=== PATIENT | male | born 1930 | race Caucasian/White ===

== ENCOUNTER → 2016-09-06 | Outpatient (CLI) | payer OTHER ==
[~2016-09-06] MED LIST: ACET-1311 PO; ASCO10003 PO; CALC500C70 PO; FLAX10007 PO; HYDR25TA4 PO; OXYB10TA13 PO; POTA-327 PO; VITA400C3 PO
[2016-09-06 12:40] LABS: BASO % 0.5 %; BASO ABS # 0.03 K/uL (0-0.2); COMPLETE YES; HEMATOCRIT 40.7 % (42-52); IG% 0.2 %; LYMPH % 26.6 %; LYMPH ABS # 1.69 K/uL (1.2-3.4); MEAN CELL VOLUME 100.5 fL (80-100); MEAN CORPUSCULAR HEMOGLOBIN 33.8 pg (25-34); MEAN CORPUSCULAR HGB CONC 33.7 g/dl (32-36); MONO % 9.9 %; NEUT % 59.8 %; PLATELET COUNT 209 K/uL (130-400); RED BLOOD COUNT 4.05 M/uL (4.7-6.1); WHITE BLOOD COUNT 6.36 K/uL (4.8-10.8)
[2016-09-06 13:12] LABS: ESTIMATED AVERAGE GLUCOSE 120 mg/dl; HA1C FLAG Normal (Normal)
[2016-09-06 13:14] LABS: ALT/SGPT 21 U/L (12-78); AST/SGOT 22 U/L (15-37); BLOOD UREA NITROGEN 26 mg/dl (7-18); BUN/CREATININE RATIO 26.3 (10-20); CALCIUM 9.4 mg/dl (8.5-10.1); CARBON DIOXIDE 26 mmol/L (21-32); CHLORIDE 105 mmol/L (98-107); CHOLESTEROL 237 mg/dl (0-200); GLUCOSE 110 mg/dl (70-99); POTASSIUM 4.2 mmol/L (3.5-5.1); SODIUM 141 mmol/L (136-145)
[2016-09-06 13:19] LABS: ALB/GLOB RATIO 1.1 (0.9-2); ALKALINE PHOSPHATASE 81 U/L (45-117); CHOLESTEROL/HDL RATIO 4.3; HDL CHOLESTEROL 55 mg/dl; LDL CHOLESTEROL CALCULATED 144 mg/dl; TRIGLYCERIDES 189 mg/dl (0-150); VERY LOW DENSITY LIPOPROT CALC 38 mg/dl
--- NOTE | 2016-09-10 13:15 | CODING QUERY MEDICAL NECESSITY ---
SUPPORTING DIAGNOSIS NEEDED Dr. Maloney, A supporting diagnosis is required for the test/procedure performed on this patient in order for us to be reimbursed by the patient's insurance. Please provide a supporting diagnosis for the following test/procedure listed below next to the test name along with your signature. *If there is no additional diagnosis for this patient that would support the following test/procedure please document that below next to the test/procedure. Test(s)/Procedure(s) that require a supporting diagnosis: * ([id number]) VITAMIN D ASSAY DIAGNOSIS: * [id number] PSA DIAGNOSIS: DATE OF SERVICE: 09/06/16 Provider Signature: Date: Thank you Christian Kemp [facility] Information Management Once completed, please kindly fax back to [phone] For questions please call [phone]
== END | disposition home or self-care (01) ==
LOC: C.LABPVFM 08:39
PROVIDERS: ATTEND Family Medicine
DX: I10 Essential (primary) hypertension (principal); R73.01 Impaired fasting glucose; D64.9 Anemia, unspecified; R39.9 Unspecified symptoms and signs involving the genitourinary system; E87.6 Hypokalemia; M47.812 Spondylosis without myelopathy or radiculopathy, cervical region; C61 Malignant neoplasm of prostate

== ENCOUNTER → 2017-03-21 | Outpatient (CLI) | payer OTHER ==
[2017-03-21 12:34] LABS: BASO % 0.2 %; BASO ABS # 0.01 K/uL (0-0.2); COMPLETE YES; EOS % 4.5 %; HEMATOCRIT 42.5 % (42-52); IG% 0.2 %; LYMPH % 23.2 %; LYMPH ABS # 1.35 K/uL (1.2-3.4); MEAN CELL VOLUME 101.9 fL (80-100); MEAN CORPUSCULAR HEMOGLOBIN 33.1 pg (25-34); MEAN CORPUSCULAR HGB CONC 32.5 g/dl (32-36); NEUT % 59.9 %; PLATELET COUNT 212 K/uL (130-400); RED BLOOD COUNT 4.17 M/uL (4.7-6.1); WHITE BLOOD COUNT 5.83 K/uL (4.8-10.8)
[2017-03-21 13:15] LABS: BLOOD UREA NITROGEN 22 mg/dl (7-18); GLUCOSE 105 mg/dl (70-99)
[2017-03-21 13:16] LABS: ALT/SGPT 19 U/L (12-78); CALCIUM 9.7 mg/dl (8.5-10.1); CARBON DIOXIDE 29 mmol/L (21-32); CHLORIDE 104 mmol/L (98-107); POTASSIUM 4.1 mmol/L (3.5-5.1); SODIUM 138 mmol/L (136-145)
[2017-03-21 13:19] LABS: ALB/GLOB RATIO 0.9 (0.9-2); ALKALINE PHOSPHATASE 81 U/L (45-117); AST/SGOT 21 U/L (15-37)
== END | disposition home or self-care (01) ==
LOC: C.LABPVFM 08:19
PROVIDERS: ATTEND Family Medicine
DX: C61 Malignant neoplasm of prostate (principal); I10 Essential (primary) hypertension; E78.5 Hyperlipidemia, unspecified; R06.09 Other forms of dyspnea; R73.01 Impaired fasting glucose; R09.81 Nasal congestion

== ENCOUNTER → 2017-03-29 | Outpatient (CLI) | payer OTHER | END | disposition home or self-care (01) | LOC: C.LABPVFM 15:35 | PROVIDERS: ATTEND Family Medicine | DX: R05 Cough (principal) ==

== ENCOUNTER → 2017-08-09 | Outpatient (CLI) | payer OTHER ==
[2017-08-09 17:37] LABS: BASO % 0.3 %; BASO ABS # 0.02 K/uL (0-0.2); EOS % 3.8 %; EOS ABS # 0.23 K/uL (0-0.5); HEMATOCRIT 38.8 % (42-52); IG# 0.02 K/uL (0.00-0.02); LYMPH % 20.6 %; LYMPH ABS # 1.24 K/uL (1.2-3.4); MEAN CELL VOLUME 101.6 fL (80-100); MEAN CORPUSCULAR HGB CONC 33.5 g/dl (32-36); MEAN PLATELET VOLUME 12.4 fL (7.4-10.4); MONO % 12.1 %; MONO ABS # 0.73 K/uL (0.11-0.59); NEUT % 62.9 %; NEUT ABS # 3.78 K/uL (1.4-6.5); PLATELET COUNT 214 K/uL (130-400); RED CELL DISTRIBUTION WIDTH CV 12.8 % (11.5-14.5); RED CELL DISTRIBUTION WIDTH SD 47.5 fL (36.4-46.3); WHITE BLOOD COUNT 6.02 K/uL (4.8-10.8)
[2017-08-09 17:46] LABS: ALBUMIN 3.4 gm/dl (3.4-5.0); ALT/SGPT 19 U/L (12-78); AST/SGOT 21 U/L (15-37); BLOOD UREA NITROGEN 25 mg/dl (7-18); CALCIUM 8.7 mg/dl (8.5-10.1); CARBON DIOXIDE 28 mmol/L (21-32); GLUCOSE 134 mg/dl (70-99); SODIUM 137 mmol/L (136-145)
[2017-08-09 17:57] LABS: ALKALINE PHOSPHATASE 94 U/L (45-117); TOTAL PROTEIN 7.3 gm/dl (6.4-8.2)
== END | disposition home or self-care (01) ==
LOC: C.LABPVFM 15:17
PROVIDERS: ATTEND Family Medicine
DX: R55 Syncope and collapse (principal)

== ENCOUNTER → 2017-08-11 | Outpatient (CLI) | payer OTHER ==
--- NOTE | 2017-08-11 13:28 | DIAGNOSTIC IMAGING REPORT ---
HEAD CT NONCONTRAST CT DOSE: 638.56 mGycm HISTORY: Syncope. TECHNIQUE: Multiaxial CT images of the head were performed without the use of intravenous contrast. Automated exposure control was utilized for this study. A dose lowering technique was utilized adhering to the principles of ALARA. Comparison: None. Findings: Mild mucosal thickening within the ethmoid air cells. The calvarium and skull base are intact. There is no mass, hematoma, midline shift, acute infarct. White matter hypodensity is nonspecific but suggestive of microvascular ischemic change. The ventricles and sulci are within normal limits for age. Impression: No acute intracranial abnormality. Electronically signed by: Freeman Jacinto M.D. 08/11/2017 1:26 PM Dictated Date/Time: 08/11/2017 12:53 PM
== END | disposition home or self-care (01) ==
LOC: C.CTS 12:26
PROVIDERS: ATTEND Family Medicine
DX: R55 Syncope and collapse (principal)

== ENCOUNTER → 2017-11-22 | Outpatient (CLI) | payer OTHER | END | disposition home or self-care (01) | LOC: C.LABPVFM 09:24 | PROVIDERS: ATTEND Urology | DX: C61 Malignant neoplasm of prostate (principal) ==

== ENCOUNTER → 2018-03-08 | Outpatient (CLI) | payer OTHER ==
--- NOTE | 2018-03-08 15:54 | DIAGNOSTIC IMAGING REPORT ---
R KNEE 1 OR 2 VIEWS ROUTINE HISTORY: 87 years-old Male KNEE INJURY, RIGHT, INITIAL ENCOUNTER acute right knee pain. COMPARISON: None available TECHNIQUE: 2 views of the right knee FINDINGS: Extensive ORIF changes about the distal femur with lateral plate and screw fusion hardware, partially imaged. Intramedullary stem of the proximal and mid femurs also noted with healed fracture deformity of the distal femoral diaphysis. 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 No evidence of hardware fracture or loosening. The bones appear mildly demineralized. Peripheral arterial calcifications are noted. Moderate joint effusion. No acute fracture or dislocation. IMPRESSION: 1. Right knee total joint arthroplasty without evidence of acute fracture or dislocation. 2. Moderate joint effusion. 3. ORIF changes of the distal femur with healed fracture deformity. The above report was generated using voice recognition software. It may contain grammatical, syntax or spelling errors. Electronically signed by: Lars Up M.D. 03/08/2018 3:53 PM Dictated Date/Time: 03/08/2018 3:51 PM
== END | disposition home or self-care (01) ==
LOC: C.RADPV 15:33
PROVIDERS: ATTEND Family Medicine
DX: S89.91XA Unspecified injury of right lower leg, initial encounter (principal); X58.XXXA Exposure to other specified factors, initial encounter; Z96.651 Presence of right artificial knee joint; M25.461 Effusion, right knee

== ENCOUNTER → 2018-03-21 | Outpatient (CLI) | payer OTHER ==
[2018-03-21 12:51] LABS: HEMOGLOBIN 13.7 g/dL (14.0-18.0); IG# 0.06 K/uL (0.00-0.02); LYMPH % 13.1 %; LYMPH ABS # 1.11 K/uL (1.2-3.4); MEAN CELL VOLUME 101.7 fL (80-100); MEAN CORPUSCULAR HGB CONC 33.4 g/dl (32-36); MEAN PLATELET VOLUME 12.8 fL (7.4-10.4); MONO % 6.5 %; MONO ABS # 0.55 K/uL (0.11-0.59); NEUT % 79.7 %; NEUT ABS # 6.73 K/uL (1.4-6.5); PLATELET COUNT 220 K/uL (130-400); RED CELL DISTRIBUTION WIDTH CV 13.3 % (11.5-14.5); RED CELL DISTRIBUTION WIDTH SD 49.7 fL (36.4-46.3); WHITE BLOOD COUNT 8.45 K/uL (4.8-10.8)
[2018-03-21 14:00] LABS: ALBUMIN 3.2 gm/dl (3.4-5.0); ALKALINE PHOSPHATASE 89 U/L (45-117); ALT/SGPT 20 U/L (12-78); AST/SGOT 16 U/L (15-37); BLOOD UREA NITROGEN 27 mg/dl (7-18); CALCIUM 8.4 mg/dl (8.5-10.1); CARBON DIOXIDE 23 mmol/L (21-32); CHOLESTEROL 224 mg/dl (0-200); CREATININE 0.99 mg/dl (0.60-1.40); GLUCOSE 109 mg/dl (70-99); LDL CHOLESTEROL CALCULATED 118 mg/dl; POTASSIUM 4.2 mmol/L (3.5-5.1); SODIUM 136 mmol/L (136-145); TOTAL PROTEIN 6.9 gm/dl (6.4-8.2)
== END | disposition home or self-care (01) ==
LOC: C.LABPVFM 08:22
PROVIDERS: ATTEND Family Medicine
DX: I10 Essential (primary) hypertension (principal); E87.6 Hypokalemia; E78.5 Hyperlipidemia, unspecified; R06.09 Other forms of dyspnea; J01.90 Acute sinusitis, unspecified; R55 Syncope and collapse